=== PATIENT | male | born 1965 | race Caucasian/White ===

== ENCOUNTER 2018-07-02 07:22 | Day surgery (SDC) | payer OTHER ==
[~2018-07-02] VITALS: Ht 170.2 cm; Wt 108.7 kg
[~2018-07-02 07:22] MED LIST: ASPI81CH PO; ATOR10 PO; Allopurinol100 MG PO; Aspirin EC81 MG PO; FURO20 PO; HYDACE5 PO; LISI20 PO; METO100ER PO; METO50 PO; POTA10T PO; VERA240ER PO; Verapamil HCl360 MG PO; Zestril40 MG PO
== END 2018-07-02 09:37 | disposition home or self-care (01) ==
LOC: ORSCSDS 07:22
PROVIDERS: Surgery
PROC: 0DJD8ZZ Inspection of Lower Intestinal Tract, Via Natural or Artificial Opening Endoscopic (ICD-10-PCS; principal; 2018-07-02 08:45)
DX: Z12.11 Encounter for screening for malignant neoplasm of colon (principal); K64.8 Other hemorrhoids; I10 Essential (primary) hypertension; G47.33 Obstructive sleep apnea (adult) (pediatric); E66.01 Morbid (severe) obesity due to excess calories; Z68.37 Body mass index [BMI] 37.0-37.9, adult; Z79.899 Other long term (current) drug therapy; Z79.82 Long term (current) use of aspirin
CPT/HCPCS: J7120